=== PATIENT | male | born 1995 | race American Indian/Alaskan Native ===

== ENCOUNTER 2016-08-19 15:36 | Emergency (ER) | payer OTHER ==
[~2016-08-19] VITALS: Ht 175.3 cm; Wt 74.0 kg
[2016-08-19 15:39] VITALS: TEMP 37.2; Ht 175.3 cm; Wt 74.0 kg
[2016-08-19] MEDS ORDERED: IBUPROFEN 600 MG TAB PO STA (15:48)
[2016-08-19] MEDS ORDERED: ACETAMINOPHEN 500 MG TAB PO STA (15:48)
[2016-08-19] MEDS ORDERED: ALBUTEROL HFA 8 GM INHALER INH ONE (16:00)
--- NOTE | 2016-08-19 16:13 | EMERGENCY ROOM VISIT NOTE ---
History Report prepared by Domonique: Alberto Mcqueen Under the Supervision of: Dr. Maik Mike M.D. First contact with patient: 15:42 Chief Complaint: FLU LIKE SX Stated Complaint: MIGRAINE;DRY COUGH;MUSCLE/JOINT PAIN History of Present Illness The patient is a 21 year old male who presents to the Emergency Room with complaints of worsening flu-like symptoms for the past three days. The patient started with a headache three days ago as well as a cough. Yesterday he started to experience fevers, chills, rhinorrhea, sore throat, nausea, and generalized body aches. His symptoms persisted today. He denies ear pain or urinary symptoms. He occasionally coughs up some phlegm. The patient had Advil and Tylenol for his symptoms. His last dose was at 0700 this morning. The patient has been drinking water and tea today. He is a [employer] student but does not have specific sick contacts. He was not immunized for influenza this year. He denies any recent travel. The patient does not have a significant history of lung disease. He does not take any medications on a regular basis. Source of History: patient Onset: three days ago Position: other (global) Quality: other (flu-like symptoms) Timing: worsening Associated Symptoms: + chills, + cough, + fevers, + headache, + nausea, + sorethroat, No urinary symptoms Review of Systems See HPI for pertinent positives & negatives. A total of 10 systems reviewed and were otherwise negative. Past Medical & Surgical Medical Problems: (1) No known health problems Family History No pertinent family history Social History Smoking Status: Former Smoker Occupation Status: [employer] student Current/Historical Medications Scheduled Albuterol Hfa (Ventolin Hfa), 3 PUFFS INH Q6H Allergies Coded Allergies: No Known Allergies (Unverified , 08/19/16) Physical Exam Vital Signs Date Time Temp Pulse Resp B/P Pulse Ox O2 Delivery O2 Flow Rate FiO2 08/19/16 17:10 107 152/65 97 Room Air 08/19/16 15:39 37.2 108 18 148/93 97 Room Air Physical Exam GENERAL: Patient is in no acute distress. HEENT: No acute trauma, normocephalic atraumatic, mucous membranes moist , mild nasal congestion, no scleral icterus. Throat erythema without exudate. NECK: No stridor, no adenopathy, no meningismus, trachea is midline. No difficulty flexing chin to chest. LUNGS: Clear to auscultation bilaterally, no wheeze, no rhonchi, breath sounds equal. HEART: Mildly tachycardic with a regular rhythm, no murmurs. ABDOMEN: Soft, nontender, bowel sounds positive, no hernias, no peritonitis. EXTREMITIES: No cyanosis or edema, full range of motion of all the joints without pain or difficulty, no signs for acute trauma. NEUROLOGIC: Oriented x 3, no acute motor or sensory deficits, no focal weakness. SKIN: No rash, no jaundice, no diaphoresis. Medical Decision & Procedures ER Provider Diagnostic Interpretation: X-ray results as stated below per interpretation by me and the radiologist: TWO VIEW CHEST CLINICAL HISTORY: Cough. FINDINGS: PA and lateral chest radiographs are obtained. No prior studies are available for comparison at the time of dictation. The cardiomediastinal silhouette is unremarkable. The lungs and pleural spaces are clear. There is no pneumothorax. The bony thorax appears intact. There is mild thoracic scoliosis. IMPRESSION: No active disease in the chest. Electronically signed by: Maik Townsend M.D. 08/19/2016 4:31 PM Dictated Date/Time: 08/19/2016 4:30 PM Laboratory Results Test 08/19/16 15:50 Influenza Type A Antigen Neg for Influ A (NEG) Influenza Type B Antigen Neg for Influ B (NEG) Laboratory results reviewed by me. Medications Administered Medications (Trade) Dose Ordered Sig/Mague Route Start Time Stop Time Status Last Admin Dose Admin Ibuprofen (Motrin Tab) 600 mg NOW STAT PO 08/19/16 15:48 08/19/16 15:50 DC 08/19/16 16:03 600 MG Acetaminophen (Tylenol Tab) 1,000 mg NOW STAT PO 08/19/16 15:48 08/19/16 15:50 DC 08/19/16 16:04 1,000 MG Albuterol (Ventolin Hfa Inhaler) 3 puffs NOW ONCE INH 08/19/16 16:00 08/19/16 16:01 DC 08/19/16 16:05 3 PUFFS ED Course 1542: The patient was evaluated in room B12b. A complete history and physical exam was performed. 1548: Tylenol 1000 mg PO, Motrin 600 mg PO. 1600: Albuterol 3 puffs INH. 1700: Reevaluated the patient. Discussed results and discharge instructions: He verbalized understanding and agreement. The patient is ready for discharge. Medical Decision Differential diagnosis includes pneumonia or bronchitis, flu-like illness or influenza, strep pharyngitis, dehydration, meningitis. The patient presents with flulike symptoms. By exam, he did not have meningismus. He was not toxic or febrile. Chest film does not show pneumonia. Influenza testing was negative. Strep testing was negative. The patient actually feels better today than he did a few days ago. I do think his illness is viral. Antibiotics are not indicated. He is being discharged on albuterol, Motrin and Tylenol for fever and aches, rest and hydration. During the patient's ER stay. He received oral Motrin and oral Tylenol. He was given albuterol via [facility]. Impression Primary Impression: Influenza-like symptoms Scribe Attestation The scribe's documentation has been prepared under my direction and personally reviewed by me in its entirety. I confirm that the note above accurately reflects all work, treatment, procedures, and medical decision making performed by me. Departure Information Dispostion Home / Self-Care Prescriptions Albuterol Hfa (VENTOLIN HFA) 200 Puffs/[id number] Mcg Aers 3 PUFFS INH Q6H, #1 INHALER Prov: Maik Mike M.D. 08/19/16 Referrals No Doctor, Assigned (PCP) Forms HOME CARE DOCUMENTATION FORM, IMPORTANT VISIT INFORMATION, School Instructions, Work Instructions Patient Instructions My [facility] Additional Instructions fluids and rest albuterol 3 puffs every 4-6 hours motrin and or tylenol for aches, fever and pain return if worsening or not improving testing today was all ok as we discussed
--- NOTE | 2016-08-19 16:33 | DIAGNOSTIC IMAGING REPORT ---
TWO VIEW CHEST CLINICAL HISTORY: Cough. FINDINGS: PA and lateral chest radiographs are obtained. No prior studies are available for comparison at the time of dictation. The cardiomediastinal silhouette is unremarkable. The lungs and pleural spaces are clear. There is no pneumothorax. The bony thorax appears intact. There is mild thoracic scoliosis. IMPRESSION: No active disease in the chest. Electronically signed by: Maik Townsend M.D. 08/19/2016 4:31 PM Dictated Date/Time: 08/19/2016 4:30 PM
[2016-08-19] MEDS ORDERED: VNTHFA/IN INH (17:04)
[2016-08-19 17:10] VITALS: BP 152/65; PULSE 107; O2SAT 97
== END 2016-08-19 17:13 | disposition home or self-care (01) ==
LOC: C.EDB 15:39
DX: J11.1 Influenza due to unidentified influenza virus with other respiratory manifestations (principal); Z87.891 Personal history of nicotine dependence